=== PATIENT | male | born 1940 | race Caucasian/White ===

== ENCOUNTER 2016-05-19 15:08 | Inpatient (IN) | payer OTHER ==
[~2016-05-19] VITALS: Ht 182.9 cm; Wt 83.7 kg
--- NOTE | ~2016-05-19 | EKG ---
[address] [place] [address] ELECTROCARDIOGRAM REPORT Name: CAROLE WOODY Room #: 435-P ADM IN M.R.#: [id number] Admission: 05/19/16 Attend Phys: Zackary Shine DO Discharge: Date of : 36 Report #: [id number] THIS REPORT FOR: //name// [facility] ED Test Date: 2016-05-19 Test Time: 15:16:03 Pat Name: CAROLE WOODY Department: Room: [facility] Gender: M Wraparound Facilitator: : 1940 Requested By: Phil Triana Order Number: [id number] MD: Roly Martin Measurements Intervals [place] Rate: 52 P: 12 NC: 224 QRS: -5 QRSD: 92 T: 33 QT: 428 QTc: 398 Interpretive Statements Sinus bradycardia Prolonged NC interval No previous ECG available for comparison Electronically Signed On 05-20-2016 7:53:17 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 05/20/16 0753 1516 1516 Roly Martin MD, FACC /EPI
--- NOTE | ~2016-05-19 | 2DMMODE ---
[facility] [place] [place] [address] 2 D/M-MODE ECHOCARDIOGRAM Name: CAROLE WOODY Room #: 435-P [facility] IN .R.#: [id number] Admission: 05/19/16 Attend Phys: Zackary Shine, Discharge: Date of : 36 Date of Service: 05/21/16 1005 Report #: [id number] THIS REPORT FOR: //name// Transthoracic Echocardiography Ordering physician: Austin Madrigal Referring physician: Austin Madrigal Stephen L. Prototyper: JAKOB Ludwig Indications/History: Ataxia, DM, HTN. BP: 143 / HR: 63bpm Height: 72in Weight: 183.6lb 68 Study data: M-mode, complete 2D, complete spectral Doppler, and color Doppler. Location: Echo laboratory. Routine. Image quality was good. 2D measurements Normal Normal LVID ED 40.6mm 36-57 IVS ED 14.2mm 6-11 LVID ES 28.4mm 23-40 LVPW ED 12.1mm 6-11 LA volume 33ml/m2 16-28 AoRoot diam 32.4mm 21-37 index ED LVOT diameter 18-23 Findings: Left ventricle: The cavity size was normal. Wall thickness was increased in a pattern of mild LVH. Systolic function was normal. The estimated ejection fraction was in the range of 55% to 60%. Wall motion was normal. Right ventricle: The cavity size was normal. Systolic function was normal. Right atrium: The atrium was normal in size. Left atrium: The atrium was mildly dilated. Volume index: 33ml/m2 (S). Aortic valve: Trileaflet; mildly thickened, mildly calcified leaflets. Doppler: There was mild stenosis. Mild regurgitation. Peak velocity: 230.9cm/s (S). Valve [facility] [address] [place] [address] 2 D/M-MODE ECHOCARDIOGRAM Name: CAROLE WOODY JR Room #: 435-P [facility] IN M.R.#: [id number] Admission: 05/19/16 Attend Phys: Zackary Shine, Discharge: Date of : 36 Date of Service: 05/21/16 1005 Report #: [id number] area: 2.1cm2(VTI). Mean gradient: 10.9mm Hg (S). Peak gradient: 21.3mm Hg (S). Mitral valve: Mildly calcified annulus. Doppler: There was no evidence for stenosis. Trivial regurgitation. Peak E-wave velocity: 67.8cm/s. Peak A-wave velocity: 91.8cm/s. Tricuspid valve: Structurally normal valve. Doppler: There was no evidence for stenosis. Mild regurgitation. Regurgitant peak velocity: 279.3cm/s. Peak RV-RA gradient: 31mm Hg (S). Pulmonic valve: Structurally normal valve. Doppler: There was no evidence for stenosis. Trivial regurgitation. Pericardium: There was no pericardial effusion. Aorta: Aortic root: The aortic root was normal in size. Pulmonary artery: Systolic pressure was estimated to be 40mm Hg. Diastolic function: Doppler parameters are consistent with abnormal left ventricular relaxation (grade 1 diastolic dysfunction). Systemic veins: Inferior vena cava: Not well visualized. Conclusions 1. Left ventricle: The cavity size was normal. Wall thickness was increased in a pattern of mild LVH. Systolic function was normal. The estimated ejection fraction was in the range of 55% to 60%. 2. Left atrium: The atrium was mildly dilated. 3. Aortic valve: Trileaflet; mildly thickened, mildly calcified leaflets. There was mild stenosis. Mild regurgitation. <ELECTRONICALLY SIGNED> By: David Grossman MD, [facility] 05/21/16 1131 1005 1131 David Grossman MD, [facility] /bravo
--- NOTE | ~2016-05-19 | HC ---
[facility] [place] [address] CONSULTATION Name: CAROLE WOODY JR Room #: 433-I [facility] IN ..#: [id number] Admission: 05/19/16 Attend Phys: Zackary Shine DO Discharge: 05/22/16 Date of : 36 Report #: [id number] THIS REPORT FOR: //name// CC: Zackary Shine Jose L Blanchardcynthia HISTORY OF PRESENT ILLNESS: This is a 75-year-old male patient who was evaluated by me for ambulation difficulty, which happened yesterday. He indicated that he had an episode where he had difficulty moving around. He was mainly ataxic. He did not have any motor deficit. He became better than it came back again. He indicates that he has seen Dr. Haynes who is a neurologist about 2 years ago. He was having some difficulty where he was falling down. He was not passing out. According to him, the symptoms were different than what he had this time. He had an extensive neurological workup at that time and that workup was mostly unremarkable. We do not have any ENT symptoms and in general feels better. He had no headache or visual disturbances associated with it. Symptoms appeared to be moderately severe. At the age of 16, he had an episode where he passed out. REVIEW OF SYSTEMS: Indicate that this patient had an episode where he passed out when he was . He never had any seizure at that time. He has been diagnosed with bipolar disorder. He indicates that he has diabetes, but he controls it with the diet. He has a history of hypertension, but he takes atenolol. He checked his blood pressure and blood sugar during these episodes and they were unremarkable. He was diagnosed with a small stroke on the basis of an MRI by Dr. Haynes when he saw him about 2 years ago. Rest of the 14-point review of systems is noncontributory. Presently, he is not having any new eye, ENT, cardiac, respiratory, GI, , musculoskeletal, constitutional, dermatological, hematological or psychiatric. Throat symptoms which are new and as mentioned above, he does have a baseline bipolar disorder. PAST MEDICAL HISTORY: Positive for these kind of spells in the past. FAMILY HISTORY: Negative for strokes. SOCIAL HISTORY: He does not smoke or drink any alcohol. PHYSICAL EXAMINATION: NEUROLOGICAL: Indicates that he is alert, responsive, oriented and able to follow simple and complex command. His speech, concentration, fund of knowledge and memory is at his baseline. Cranial nerve examination 2 through 12 is unremarkable. Specifically, he does not have any nystagmus. He has symmetrical strength, sensation, reflexes and tones in all 4 extremities. There is no meningeal sign. There is no carotid bruit. There is no papilledema. GENERAL: He is a very well-developed individual who does not have any dysmorphic features of eyes, ears and face. EXTREMITIES: His pulses are palpable. He has no edema, cyanosis or jaundice. [address] [address] CONSULTATION Name: CAROLE WOODY Room #: 433-I [facility] IN ..#: [id number] Admission: 05/19/16 Attend Phys: Zackary Shine, DO Discharge: 05/22/16 Date of : 36 Report #: [id number] CARDIAC EXAMINATION: Does not demonstrate any atrial fibrillation. RESPIRATORY EXAMINATION: Does not show any respiratory difficulty. VITAL SIGNS: Indicate a blood pressure of 174/73, respiration is 20, pulse is 67 and temperature is 98.1. LABORATORY DATA: Indicated that his hemoglobin is trace-low at 12. His GFR is normal. He never had any hypoglycemia. His calcium is a little low at 8.3. He did have parathyroid problems in the past. RADIOLOGICAL DATA: He did have multiple testing done in emergency room. Those were reviewed. This patient had a CT angiogram of the head and neck. CT angiogram of the head did not come properly, but CT angiogram of the neck was unremarkable. So, he underwent an MRI of the brain, which showed no acute abnormality. He also had an MRA of the head, which was also unremarkable. IMPRESSION: 1. Episode of ambulation difficulty of unknown etiology. These episodes are more likely related to either systemic causes or ENT causes other than neurological causes. 2. History of multiple problems including diabetes, hypertension and bipolar disorder. 3. Seizure disorders are unlikely because the description is not typical and the patient is already on Lamictal for his bipolar disorder, which will prevent seizures from happening. RECOMMENDATIONS: 1. I will check an EEG to complete the workup. 2. We will also check an echocardiogram to complete the workup. 3. I will order some other blood workup on him. 4. We will ask PT and OT to ambulate him and see how he does and at the same time, they can check the blood pressure in case his blood pressure drops. 5. If ENT consult can be arranged here and if somebody comes here that can be done, otherwise that can be done as an outpatient. Thank you very much for this referral and if you have any question, please feel free to contact me. <ELECTRONICALLY SIGNED> By: Austin Madrigal MD 05/29/16 1544 0813 0854 Austin Madrigal MD /nt
--- NOTE | ~2016-05-19 | D ---
[facility] [place] [address] DISCHARGE SUMMARY Name: CAROLE WOODY JR Room #: 433-I [facility] IN M.R.#: [id number] Admission: 05/19/16 Attend Phys: Zackary Shine DO Discharge: 05/22/16 Date of : 36 Report #: [id number] THIS REPORT FOR: //name// CC: Zackary Rankinhen Ryan DATE OF SERVICE: 05/22/2016 TYPE OF DICTATION: Discharge summary. After pikg-ak-vmmy encounter, I did see the patient and examined him on the day of discharge, 05/22/2016. DISCHARGE DIAGNOSES: 1. Dizziness, resolved. 2. Hypertension. 3. Hyperlipidemia. 4. Depression. 5. Type 2 diabetes. 6. Obstructive sleep apnea. 7. History of cerebrovascular accident, without any sequelae. 8. Coronary artery disease, status post stents in 2013. DISCHARGE MEDICATIONS: See admission reconciliation sheet. HOSPITAL COURSE: The patient was admitted to the hospital secondary to dizziness. The patient was admitted to telemetry. He was monitored closely. His labs came back negative. The patient underwent brain MRI and MRA, which were negative. Head MRI was negative. CT angiograph was negative. He was seen by the neurology service and he had an EEG which was normal and echocardiogram was done also and his ejection fraction was 60%. The patient was cleared by neurology to go home and follow with his neurology doctor and to follow with ENT for the cause of dizziness. The patient is stable, going home. <ELECTRONICALLY SIGNED> By: Carlos Olguin MD 05/22/16 1828 0748 1051 Carlos Olguin MD /nt
--- NOTE | ~2016-05-19 | EEG ---
[facility] [place] [address] ELECTROENCEPHALOGRAM Name: CAROLE WOODY JR Room #: 433-I [facility] IN M.R.#: [id number] Admission: 05/19/16 Attend Phys: Zackary Shine DO Discharge: 05/22/16 Date of : 36 Report #: [id number] THIS REPORT FOR: //name// CC: Zackary Shine Jose L Santocynthia DATE OF SERVICE: 05/20/2016 This patient is having episodes of ataxias. EEG is being done to evaluate the possibility of seizure. EEG was done by placing the electrodes by standard 10/20 system of electrode placement. Both referential and sequential montages were used for recording. Background activity in this patient's EEG is about 11 Hz and 40 microvolt. It is a symmetrical activity. Photic stimulation was unremarkable. This patient went to sleep that is associated with bilaterally symmetrical sleep spindle and vertex sharp waves. Throughout the record, no active epileptiform activity was noticed. IMPRESSION: This patient's EEG is within normal limits. Thank you very much for this referral. <ELECTRONICALLY SIGNED> By: Austin Madrigal MD 05/29/162050 4 7 Austin Madrigal MD /nt
[~2016-05-19 15:08] MED LIST: ASPIR 8181 MG PO; ATENOLOL 50MG T50 M1 PO; BRILINTA90 MG PO; CALCIUM 500 +1 EAC5 PO; COZAAR 50 MG TA50 M2 PO; CRESTOR10 MG PO; EFFIENT10 MG PO; FISH OIL 1,001000 M2 PO; LAMICTAL100 MG PO; PAXIL10 MG PO; UNICOMPLEX M TA1 TA1 PO
[2016-05-19 15:11] VITALS: BP 149/87
[2016-05-19] MEDS ORDERED: PLAVIX 75 MG TA75 M1 PO (15:37)
[2016-05-19 16:00] LABS: POC CA IONIZED 4.8 mg/dL (4.5-5.3); POC CREATININE 0.9 mg/dL (0.6-1.3); POC HEMOGLOBIN 12.2 gm/dL (14.0-18.0); POC POTASSIUM 4.4 mmol/L (3.5-5.1)
[2016-05-19 16:15] LABS: PROTIME 10.5 Seconds (9.3-11.4)
[2016-05-19 16:39] LABS: BASOPHILS 1.3 % (0.0-2.0); EOSINOPHILS 7.8 % (0.0-3.0); HEMOGLOBIN 13.7 gm/dL (14.0-18.0); LYMPHOCYTES 21.1 % (24.0-44.0); MCH 31.9 pg (26.0-34.0); MCHC 33.4 % (28.0-37.0); MCV 95.3 fL (80.0-100.0); MONOCYTES 6.3 % (1.0-8.0); PLATELET COUNT 215 thou/uL (150-400); POLYS 63.5 % (36.0-66.0); RDW 13.6 % (10.5-14.5); WBC 6.3 thou/uL (4.0-11.0)
[2016-05-19 16:42] LABS: ANION GAP 3 mmol/L (7-16); BUN 22 mg/dL (7-18); CALCIUM 9.4 mg/dL (8.5-10.1); CHLORIDE 101 mmol/L (98-107); CO2 37 mmol/L (21-32); CREATININE 1.1 mg/dL (0.6-1.3); GLUCOSE 135 mg/dL (70-99); POTASSIUM 4.6 mmol/L (3.5-5.1); SODIUM 141 mmol/L (136-145)
[2016-05-19 16:44] LABS: MANUAL DIFF NO
[2016-05-19 17:00] LABS: ALBUMIN 4.2 g/dL (3.4-5.0); ALKALINE PHOSPHATASE 92 U/L (46-116); SGOT 16 U/L (15-37); SGPT 31 U/L (30-65); TOTAL BILIRUBIN 0.3 mg/dL (<0.1-1.0); TROPONIN-I < 0.04 ng/mL (<0.04-0.07)
[2016-05-19 17:41] VITALS: BP 150/81
[2016-05-19 20:05] VITALS: BP 150/72
[2016-05-20 00:01] VITALS: BP 157/75
[2016-05-20 04:00] VITALS: BP 134/73
[2016-05-20 06:04] LABS: MCHC 33.4 % (28.0-37.0); RBC 3.75 mil/uL (4.50-6.00); RDW 13.3 % (10.5-14.5); WBC 5.9 thou/uL (4.0-11.0)
[2016-05-20 06:28] LABS: CALCIUM 8.3 mg/dL (8.5-10.1); CREATININE 1.2 mg/dL (0.6-1.3); MAGNESIUM 1.8 mg/dL (1.8-2.4); POTASSIUM 4.3 mmol/L (3.5-5.1)
[2016-05-20 08:00] VITALS: BP 147/70
[2016-05-20 12:00] VITALS: BP 155/79
[2016-05-20 16:00] VITALS: BP 155/71
[2016-05-20 19:07] LABS: TSH 4.79 uIU/mL (0.450-4.500)
[2016-05-20 19:25] VITALS: BP 144/74
[2016-05-21 01:06] LABS: GLYCOHEMOGLOBIN (HGB A1C) 6.4 % (4.8-5.6)
[2016-05-21 03:40] VITALS: BP 143/68
[2016-05-21 05:43] LABS: ABSOLUTE NEUTROPHILS 3.6 thou/uL (1.4-8.2); BASOPHILS 0.9 % (0.0-2.0); HEMATOCRIT 35.4 % (42.0-52.0); LYMPHOCYTES 22.4 % (24.0-44.0); MCH 32.1 pg (26.0-34.0); MCHC 33.9 % (28.0-37.0); MCV 94.7 fL (80.0-100.0); MONOCYTES 8.6 % (1.0-8.0); PLATELET COUNT 171 thou/uL (150-400); POLYS 60.1 % (36.0-66.0); RBC 3.73 mil/uL (4.50-6.00); RDW 13.3 % (10.5-14.5)
[2016-05-21 05:51] LABS: MANUAL DIFF NO
[2016-05-21 06:06] LABS: CALCIUM 8.5 mg/dL (8.5-10.1)
[2016-05-21 08:00] VITALS: BP 147/82
[2016-05-21 12:00] VITALS: BP 156/72
[2016-05-21 16:00] VITALS: BP 156/75
[2016-05-21 19:40] VITALS: BP 150/73
[2016-05-22 03:35] VITALS: BP 149/83
[2016-05-22 08:00] VITALS: BP 169/80
[2016-05-22 08:43] VITALS: BP 149/83
== END 2016-05-22 10:30 | disposition home or self-care (01) | DRG 149 ==
LOC: ER 15:08 → 4S 17:10 → EROBS 17:10 → 4S 17:42
PROVIDERS: Hospitalist; Internal Medicine Geriatric Medicine; Physician Assistant
DX: R42 Dizziness and giddiness (principal); I10 Essential (primary) hypertension; E11.9 Type 2 diabetes mellitus without complications; G47.33 Obstructive sleep apnea (adult) (pediatric); I25.10 Atherosclerotic heart disease of native coronary artery without angina pectoris; E78.5 Hyperlipidemia, unspecified; F31.9 Bipolar disorder, unspecified; G40.909 Epilepsy, unspecified, not intractable, without status epilepticus; E78.00 Pure hypercholesterolemia, unspecified; Z98.890 Other specified postprocedural states; Z85.828 Personal history of other malignant neoplasm of skin; Z98.49 Cataract extraction status, unspecified eye; Z95.5 Presence of coronary angioplasty implant and graft; Z86.73 Personal history of transient ischemic attack (TIA), and cerebral infarction without residual deficits; Z87.891 Personal history of nicotine dependence; Z79.899 Other long term (current) drug therapy; Z79.82 Long term (current) use of aspirin; W18.39XA Other fall on same level, initial encounter; Y93.89 Activity, other specified; Y92.89 Other specified places as the place of occurrence of the external cause; Y99.8 Other external cause status
CPT/HCPCS: 10100; 10195

== ENCOUNTER 2017-06-09 10:12 | Emergency (ER) | payer OTHER ==
[~2017-06-09] VITALS: Ht 182.9 cm; Wt 78.5 kg
--- NOTE | ~2017-06-09 | EKG ---
[address] [facility] [place] [address] ELECTROCARDIOGRAM REPORT Name: CAROLE WOODY Room #: [facility]#: [id number] Admission: 06/09/17 Attend Phys: Discharge: 06/09/17 Date of : 36 Report #: [id number] THIS REPORT FOR: //name// [facility] ED Test Date: 2017-06-09 Test Time: 10:24:26 Pat Name: CAROLE WOODY Department: Room: Gender: Establishment Guide: JANESTOM : 1940 Requested By: Melo Mcneal Order Number: [id number] MD: Roly Martin Measurements Intervals [place] Rate: 68 P: 26 DC: 213 QRS: 1 QRSD: 92 T: 31 QT: 386 QTc: 411 Interpretive Statements Sinus rhythm Borderline prolonged DC interval Compared to ECG 05/19/2016 15:16:03 Sinus bradycardia no longer present Electronically Signed On 06-10-2017 8:21:27 CARD MAKER by Roly Martin [email or web address] <ELECTRONICALLY SIGNED> By: Roly Martin MD, [facility] 06/10/17 0821 1024 1024 Roly Martin MD, FACC /EPI
[~2017-06-09 10:12] MED LIST changes: +PLAVIX 75 MG TA75 M1 PO
[2017-06-09] MEDS ORDERED: HYDROCHLOROTHIA25 M2 PO (10:17)
[2017-06-09 10:28] LABS: ABSOLUTE NEUTROPHILS 5.7 thou/uL (1.4-8.2); BASOPHILS 0.9 % (0.0-2.0); EOSINOPHILS 3.6 % (0.0-3.0); HEMATOCRIT 37.2 % (42.0-52.0); HEMOGLOBIN 12.7 gm/dL (14.0-18.0); LYMPHOCYTES 11.6 % (24.0-44.0); MCH 31.9 pg (26.0-34.0); MCV 93.7 fL (80.0-100.0); MONOCYTES 6.3 % (1.0-8.0); PLATELET COUNT 215 thou/uL (150-400); POLYS 77.6 % (36.0-66.0); RBC 3.97 mil/uL (4.50-6.00); WBC 7.3 thou/uL (4.0-11.0)
[2017-06-09 10:38] LABS: ANION GAP 7 mmol/L (7-16); BUN 28 mg/dL (7-18); CALCIUM 9.6 mg/dL (8.5-10.1); CHLORIDE 100 mmol/L (98-107); CO2 33 mmol/L (21-32); CREATININE 1.6 mg/dL (0.7-1.3); GLUCOSE 143 mg/dL (74-106); POTASSIUM 4.6 mmol/L (3.5-5.1); SODIUM 140 mmol/L (136-145)
[2017-06-09 10:47] LABS: ALBUMIN 3.9 g/dL (3.4-5.0); MAGNESIUM 1.9 mg/dL (1.8-2.4); SGOT 23 U/L (15-37); SGPT 34 U/L (30-65); TOTAL BILIRUBIN 0.6 mg/dL (<0.1-1.0); TOTAL PROTEIN 7.4 g/dL (6.4-8.2); TROPONIN-I < 0.04 ng/mL (<0.06)
[2017-06-09] MEDS ORDERED: FLAGYL500 MG PO (11:28)
[2017-06-09] MEDS ORDERED: CIPROFLOXACIN500 M1 PO (11:28)
[2017-06-09] MEDS ORDERED: TRAMADOL 50 MG50 MG PO (11:28)
[2017-06-09 11:54] VITALS: BP 118/50
== END 2017-06-09 11:54 | disposition home or self-care (01) ==
LOC: ER 10:12
PROVIDERS: Emergency Medicine
DX: R55 Syncope and collapse (principal); I25.10 Atherosclerotic heart disease of native coronary artery without angina pectoris; E11.22 Type 2 diabetes mellitus with diabetic chronic kidney disease; N18.9 Chronic kidney disease, unspecified; G47.30 Sleep apnea, unspecified; Z87.891 Personal history of nicotine dependence; K57.92 Diverticulitis of intestine, part unspecified, without perforation or abscess without bleeding

== ENCOUNTER → 2018-03-22 | Outpatient (CLI) | payer OTHER ==
[~2018-03-22] MED LIST changes: +CIPROFLOXACIN500 M1 PO; +FLAGYL500 MG PO; +HYDROCHLOROTHIA25 M2 PO; +TRAMADOL 50 MG50 MG PO
== END ==
LOC: NUC 08:03
DX: I25.10 Atherosclerotic heart disease of native coronary artery without angina pectoris (principal); Z98.61 Coronary angioplasty status

== ENCOUNTER → 2019-03-20 | Outpatient (CLI) | payer OTHER | LOC: NUC 11:43 | DX: I25.9 Chronic ischemic heart disease, unspecified (principal); R00.1 Bradycardia, unspecified; I25.10 Atherosclerotic heart disease of native coronary artery without angina pectoris; Z98.61 Coronary angioplasty status ==

== ENCOUNTER → 2021-03-07 | Outpatient (CLI) | payer OTHER | LOC: HEART 08:00 | PROVIDERS: ATTEND Internal Medicine | DX: I25.10 Atherosclerotic heart disease of native coronary artery without angina pectoris (principal); Z95.5 Presence of coronary angioplasty implant and graft ==